=== PATIENT | male | born 1995 | race Caucasian/White ===

== ENCOUNTER 2016-08-07 08:58 | Emergency (ER) | payer OTHER ==
[2016-08-07 09:19] VITALS: BP 139/95; PULSE 95; RESP 18
[2016-08-07 09:20] VITALS: TEMP 99.9
[2016-08-07 09:50] LABS: Appearance,Urine Clear (Clear); Bilirubin,Urine Negative (Negative); Glucose,Urine (UA) Negative (Negative); Ketones,Urine Negative (Negative); Leukocyte Esterase,Urine Negative (Negative); Nitrite,Urine Negative (Negative); Protein,Urine Negative (Negative); UA Billing (MACRO vs. MICRO) CHEM; Urobilinogen,Urine <2.0 mg/dL (<2.0)
--- NOTE | 2016-08-07 09:50 | ED ---
Psych HPI - General Chief Complaint: Psychiatric Symptoms Stated Complaint: depression Time Seen by Provider: 08/07/16 09:30 Source: patient, RN notes reviewed Mode of arrival: ambulatory - History of Present Illness Initial Comments: Patient is a 20-year-old male presents emergency room for psychiatric evaluation. Patient's father states the patient has a history of depression. Patient's father states patient has history of bipolar disorder. Patient's mother states the patient on his manic phase. Patient states that he has been feeling depressed over the past few weeks. 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 Patient's father states that while talking on the phone with him, he noticed that patient was not acting himself. Patient states that he takes lithium, Zoloft and Seroquel as needed. Patient states his lithium was increased about a month ago. Patient states he was supposed to get his lithium level checked a few weeks ago and never did. Patient states he follows up with a psychiatrist at [employer] [facility] [employer]. Patient states he has been having on and off suicidal thoughts. Patient denies any current plans. Patient denies any current suicidal ideations. Patient denies homicidal ideations. Patient denies visual or auditory hallucinations. Patient denies smoking. Patient states he does smoke marijuana occasionally. Patient states he drinks alcohol the weekends. Patient denies any recent alcohol use. Patient denies other illicit drug use. Patient denies significant past medical history. Patient denies headache, dizziness, chest pain, shortness of breath, nausea, vomiting, abdominal pain, fevers or chills. Patient's father states the patient was placed at [facility] for about a month about 2 years ago and wanted him to be evaluated before he gets any worse and that happens again. - Related Data Home Medications Medication Instructions Recorded Confirmed [place] Carbonate [Lithobid] 900 mg PO HS 08/07/16 08/07/16 QUEtiapine [SEROquel] 100 mg PO HS 08/07/16 08/07/16 Sertraline [Zoloft] 200 mg PO HS 08/07/16 08/07/16 Allergies Allergy/AdvReac Type Severity Reaction Status Date / Time No Known Allergies Allergy Verified 08/07/16 09:39 Review of Systems ROS Statement: Those systems with pertinent positive or pertinent negative responses have been documented in the HPI. ROS Other: All systems not noted in ROS Statement are negative. Past Medical History Past Medical History: No Reported History History of Any Multi-Drug Resistant Organisms: None Reported Past Surgical History: Appendectomy, Orthopedic Surgery Additional Past Surgical History / Comment(s): bone spur removal from wrist Past Psychological History: Bipolar, Depression Smoking Status: Current some day smoker Past Alcohol Use History: Occasional Past Drug Use History: Marijuana General Exam - General Exam Comments Initial Comments: Sitting in exam room, no acute distress. Limitations: no limitations General appearance: alert, in no apparent distress Head exam: Present: atraumatic, normocephalic, normal inspection Eye exam: Present: normal appearance, PERRL, EOMI Pupils: Present: normal accommodation ENT exam: Present: normal exam Neck exam: Present: normal inspection Respiratory exam: Present: normal lung sounds bilaterally. Absent: respiratory distress Cardiovascular Exam: Present: regular rate, normal rhythm, normal heart sounds Extremities exam: Present: normal inspection Back exam: Present: normal inspection Neurological exam: Present: alert, oriented X3, CN II-XII intact, normal gait Psychiatric exam: Present: normal affect, normal mood Skin exam: Present: warm, dry, intact, normal color. Absent: rash Course Vital Signs 08/07/16 09:13 Temperature 99.9 F H Pulse Rate 95 Respiratory 18 Rate Blood Pressure 139/95 O2 Sat by Pulse 97 Oximetry Medical Decision Making - Medical Decision Making Patient is a 20-year-old female presents to the emergency room for psychiatric evaluation. Patient's lithium level 0.3. Patient states last dose of lithium was about 12 hours ago. Patient medically cleared at this time to be evaluated by psych. [facility] did evaluate patient and does not meet admission criteria. Patient advised to follow-up with outpatient. Patient and his father state they understand everything that was discussed with them. Return parameters discussed. - Lab Data Lab Results 08/07/16 08/07/16 08/07/16 Range/Units 09:36 09:36 10:52 Urine Color Yellow Urine Appearance Clear (Clear) Urine pH 7.0 (5.0-8.0) Ur Specific Pe Ell 1.010 (1.001-1.035) Urine Protein Negative (Negative) Urine Glucose (UA) Negative (Negative) Urine Ketones Negative (Negative) Urine Blood Negative (Negative) Urine Nitrate Negative (Negative) Urine Bilirubin Negative (Negative) Urine Urobilinogen <2.0 (<2.0) mg/dL Ur Leukocyte Esterase Negative (Negative) Urine Opiates Screen Not Detected (NotDetected) Ur Oxycodone Screen Not Detected (NotDetected) Urine Methadone Screen Not Detected (NotDetected) Ur Propoxyphene Screen Not Detected (NotDetected) Ur Barbiturates Screen Not Detected (NotDetected) U Tricyclic Antidepress Not Detected (NotDetected) Ur Phencyclidine Scrn Not Detected (NotDetected) Ur Amphetamines Screen Not Detected (NotDetected) U Methamphetamines Scrn Not Detected (NotDetected) U Benzodiazepines Scrn Not Detected (NotDetected) [place] 0.3 mmol/L Urine Cocaine Screen Not Detected (NotDetected) U Marijuana (THC) Screen Not Detected (NotDetected) Disposition Clinical Impression: Bipolar disorder Disposition: HOME SELF-CARE Condition: Good Instructions: Bipolar Disorder (ED) Additional Instructions: Continue taking medications as directed. Please follow up with psychiatrist. If any new symptom arises or symptoms worsen, return to ER as soon as possible. Referrals: Alexei Maynard MD [Primary Care Provider] - 1-2 days Time of Disposition: 12:29
[2016-08-07] MEDS ORDERED: NICOTINE 14MG/24HR PATCH TRANSDERM STA (10:43)
== END 2016-08-07 12:44 | disposition home or self-care (01) ==
LOC: EC 08:58
DX: F31.9 Bipolar disorder, unspecified (principal); Z79.899 Other long term (current) drug therapy; F17.200 Nicotine dependence, unspecified, uncomplicated
CPT/HCPCS: 82075; 36415; 80178; 81003; 80306; 99283; S4990

== ENCOUNTER → 2016-12-30 | Outpatient (CLI) | payer OTHER ==
[2016-12-30 13:32] LABS: Blood Urea Nitrogen 13 mg/dL (9-20); Cholesterol 186 mg/dL (<200); HDL Cholesterol 43 mg/dL (40-60); Lithium 0.4 mmol/L; Non-African American GFR(MDRD) >60 (>60 ml/min/1.73 sqM); Triglycerides 173 mg/dL (<150)
[2016-12-30 17:45] LABS: Glucose 92 mg/dL (74-99)
[2016-12-30 19:39] LABS: Hemoglobin A1C 4.8 % (4.2-6.1)
== END | disposition home or self-care (01) ==
LOC: LABWHC1 12:50
PROVIDERS: ATTEND Psychiatry & Neurology Psychiatry
DX: Z51.81 Encounter for therapeutic drug level monitoring (principal); Z79.899 Other long term (current) drug therapy
CPT/HCPCS: 36415; 80061; 80178; 82565; 82947; 83036; 84439; 84443; 84520

== ENCOUNTER → 2020-06-15 | Outpatient (CLI) | payer OTHER ==
[2020-06-15 10:41] LABS: Basophils # (A) 0.1 k/uL (0-0.2); Basophils % (A) 1 %; Eosinophils # (A) 0.6 k/uL (0-0.7); Eosinophils % (A) 7 %; HCT 49.8 % (39.0-53.0); HGB 17.2 gm/dL (13.0-17.5); Lymphocytes # (A) 2.9 k/uL (1.0-4.8); Lymphocytes % (A) 33 %; MCH 31.6 pg (25.0-35.0); MCHC 34.5 g/dL (31.0-37.0); MCV 91.7 fL (80.0-100.0); Mean Platelet Volume 7.8; Monocytes # (A) 0.7 k/uL (0-1.0); Monocytes % (A) 7 %; Neutrophils # (A) 4.5 k/uL (1.3-7.7); Neutrophils % (A) 50 %; Platelet Count 245 k/uL (150-450); RBC 5.43 m/uL (4.30-5.90); RDW 12.7 % (11.5-15.5); WBC 8.9 k/uL (3.8-10.6)
[2020-06-15 15:49] LABS: African American GFR (CKD) 122.4 (60.0-200.0); Albumin 4.8 g/dL (3.80-4.90); Albumin/Globulin Ratio 1.92 (1.60-3.17); Anion Gap 7.1 mmol/L (4.00-12.00); Calcium 10.1 mg/dL (8.7-10.3); Carbon Dioxide 26.9 mmol/L (21.6-31.8); Globulin 2.5 g/dL (1.6-3.3); Lithium 0.7 mmol/L (0.5-1.2); Non-African American GFR(CKD) 105.6 (60.0-200.0); Potassium 4.9 mmol/L (3.5-5.5); T4, Free (Free Thyroxine) 0.9 ng/dL (0.80-1.80); Total Bilirubin 0.6 mg/dL (0.2-1.2); Total Protein 7.3 g/dL (6.2-8.2)
== END | disposition home or self-care (01) ==
LOC: LABWHC1 09:40
PROVIDERS: ATTEND Family Medicine
DX: F31.9 Bipolar disorder, unspecified (principal); E03.9 Hypothyroidism, unspecified
CPT/HCPCS: 36415; 80053; 80178; 84439; 84443; 84481; 85025

== ENCOUNTER → 2020-12-02 | Outpatient (CLI) | payer OTHER ==
[2020-12-02 19:15] LABS: Albumin 4.9 g/dL (3.80-4.90); Albumin/Globulin Ratio 1.81 (1.60-3.17); Bilirubin, Conjugated 0.3 mg/dL (0.20-0.40); Bilirubin,Unconjugated 0.7 mg/dL; C Reactive Protein, High Sens 1.08 mg/L (0.000-3.000); Chol/HDL Ratio 4.47; Ferritin 301.9 ng/mL (22.0-322.0); Globulin 2.7 g/dL (1.6-3.3); LDL Cholesterol,Calculated 99.6 mg/dL (0.0-131.0); Lithium 0.2 mmol/L (0.5-1.2); Total Protein 7.6 g/dL (6.2-8.2); VLDL Calculation 25.4 mg/dL (5.00-40.00)
[2020-12-02 22:09] LABS: Hepatitis A Antibody IgM Non-Reactive (Non-Reactive); Hepatitis B Core IgM Non-Reactive (Non-Reactive); Hepatitis B Surface Antigen Non-Reactive (Non-Reactive); Hepatitis C IgG Antibody Non-Reactive (Non-Reactive)
== END | disposition home or self-care (01) ==
LOC: LABWHC1 10:39
PROVIDERS: ATTEND Family Medicine
DX: Z13.220 Encounter for screening for lipoid disorders (principal); F31.9 Bipolar disorder, unspecified; R74.01 Elevation of levels of liver transaminase levels
CPT/HCPCS: 36415; 80061; 80074; 80076; 80178; 82728; 82977; 86141

== ENCOUNTER 2023-01-05 10:05 | Emergency (ER) | payer OTHER ==
[2023-01-05 10:19] VITALS: RESP 16; TEMP 98.1
--- NOTE | 2023-01-05 10:49 | ED ---
General Adult HPI - General Chief complaint: GI Bleed Stated complaint: blood in Stool Time Seen by Provider: 01/05/23 10:34 Source: patient, RN notes reviewed Mode of arrival: ambulatory Limitations: no limitations - History of Present Illness Initial comments: Patient is a 27 year old male presenting to the ER with a chief complaint of bright red blood when wiping after bowel movements. Pateints states it started this morning and is extremely painful. He is unable to sit down due to the pain. Denies any urinary symptoms, trauma, or abdominal pain. No other complaints. Patient has meant that he was straining with bowel movement this morning when it started. - Related Data Home Medications Medication Instructions Recorded Confirmed [place] Carbonate [Lithobid] 900 mg PO HS 08/07/16 08/07/16 QUEtiapine [SEROquel] 100 mg PO HS 08/07/16 08/07/16 Sertraline [Zoloft] 200 mg PO HS 08/07/16 08/07/16 Previous Rx's Medication Instructions Recorded Docusate [Colace] 100 mg PO DAILY #10 capsule 01/05/23 Hydrocortisone/Pramoxine 1 applic RECTAL BID #10 gm 01/05/23 [Proctofoam-Hc 1%-1% Foam] Triamcinolone 0.1% Cream [Kenalog 1 applicatio TOPICAL BID #30 gram 01/05/23 0.1% Cream] Allergies Allergy/AdvReac Type Severity Reaction Status Date / Time No Known Allergies Allergy Verified 01/05/23 10:16 Review of Systems ROS Statement: Those systems with pertinent positive or pertinent negative responses have been documented in the HPI. ROS Other: All systems not noted in ROS Statement are negative. Past Medical History Past Medical History: No Reported History History of Any Multi-Drug Resistant Organisms: None Reported Past Surgical History: Appendectomy, Orthopedic Surgery Additional Past Surgical History / Comment(s): bone spur removal from wrist Past Psychological History: Bipolar, Depression Smoking Status: Vaper Past Alcohol Use History: Occasional Past Drug Use History: Marijuana General Exam Limitations: no limitations General appearance: alert, in no apparent distress, anxious Head exam: Present: atraumatic, normocephalic, normal inspection Respiratory exam: Present: normal lung sounds bilaterally. Absent: respiratory distress, wheezes, rales, rhonchi, stridor Cardiovascular Exam: Present: regular rate, normal rhythm, normal heart sounds. Absent: systolic murmur, diastolic murmur, rubs, gallop, clicks GI/Abdominal exam: Present: soft, normal bowel sounds. Absent: distended, tenderness, guarding, rebound, rigid Rectal exam: Present: normal inspection, normal rectal tone Course Vital Signs 01/05/23 01/05/23 10:16 11:16 Temperature 98.1 F Pulse Rate 62 68 Respiratory 16 16 Rate Blood Pressure 162/86 145/68 O2 Sat by Pulse 98 98 Oximetry Medical Decision Making - Medical Decision Making Was pt. sent in by a medical professional or institution (, DONNA, HEARING AIDE TECHNICIAN, urgent care, hospital, or long term...) When possible be specific @ -No Did you speak to anyone other than the patient for history (EMS, parent, family, police, friend...)? What history was obtained from this source @ -No Did you review nursing and triage notes (agree or disagree)? Why? @ -I reviewed and agree with nursing and triage notes Were old charts reviewed (outside hosp., previous admission, EMS record, old EKG, old radiological studies, urgent care reports/EKG's, long term records)? Report findings @ -No old charts were reviewed Differential Diagnosis (chest pain, altered mental status, abdominal pain women, abdominal pain men, vaginal bleeding, weakness, fever, dyspnea, syncope, headache, dizziness, GI bleed, back pain, seizure, CVA, palpatations, mental health, musculoskeletal)? @ -Hemorrhoid, internal, fissure, gastric intestinal bleeding, EKG interpreted by me (3pts min.). @ -None X-rays interpreted by me (1pt min.). @ -None done CT interpreted by me (1pt min.). @ -None done U/S interpreted by me (1pt. min.). @ -None done What testing was considered but not performed or refused? (CT, X-rays, U/S, labs)? Why? @ -None What meds were considered but not given or refused? Why? @ -None Did you discuss the management of the patient with other professionals (professionals i.e. DONNA Lock, HEARING AIDE TECHNICIAN, lab, RT, psych nurse, mental health social worker, soft top installer, teacher, special forces warrant officer, case loader operator)? Give summary @ -No Was smoking cessation discussed for >3mins.? @ -No Was critical care preformed (if so, how long)? @ -No Were there social determinants of health that impacted care today? How? (Homelessness, low income, unemployed, alcoholism, drug addiction, transportation, low edu. Level, literacy, decrease access to med. care, halfway, rehab)? @ -No Was there de-escalation of care discussed even if they declined (Discuss DNR or withdrawal of care, Hospice)? DNR status @ -No What co-morbidities impacted this encounter? (DM, HTN, Smoking, COPD, CAD, Cancer, CVA, ARF, Chemo, Hep., AIDS, mental health diagnosis, sleep apnea, morbid obesity)? @ -None Was patient admitted / discharged? Hospital course, mention meds given and route, prescriptions, significant lab abnormalities, going to OR and other pertinent info. @ -Discharged patient's symptoms consistent with internal hemorrhoid. Patient was given Proctofoam patient advised to use Tucks pads, stool softener. Patient also complained of rash or skin consistent with dermatitis. Patient was given topical steroid cream temperature discussed. Undiagnosed new problem with uncertain prognosis? @ -No Drug Therapy requiring intensive monitoring for toxicity (Heparin, Nitro, Insulin, Cardizem)? @ -No Were any procedures done? @ -No Diagnosis/symptom? @ -Dermatitis, internal hemorrhoid Acute, or Chronic, or Acute on Chronic? @ -Acute Uncomplicated (without systemic symptoms) or Complicated (systemic symptoms)? @ -Uncomplicated Side effects of treatment? @ -No Exacerbation, Progression, or Severe Exacerbation? @ -No Poses a threat to life or bodily function? How? (Chest pain, [place], [place], pneumonia, PE, COPD, DKA, ARF, appy, cholecystitis, CVA, Diverticulitis, Homicidal, Suicidal, threat to staff... and all critical care pts) @ -No Disposition Clinical Impression: Internal hemorrhoid, Dermatitis Disposition: HOME SELF-CARE Condition: Stable Instructions (If sedation given, give patient instructions): Hemorrhoids (ED) Additional Instructions: Use [id number] Tucks. Please return to the Emergency Department if symptoms worsen or any other concerns. Prescriptions: Docusate [Colace] 100 mg PO DAILY #10 capsule Triamcinolone 0.1% Cream [Kenalog 0.1% Cream] 1 applicatio TOPICAL BID #30 gram Hydrocortisone/Pramoxine [Proctofoam-Hc 1%-1% Foam] 1 applic RECTAL BID #10 gm Is patient prescribed a controlled substance at d/c from ED?: No Referrals: None,Stated [Primary Care Provider] - 1-2 days Time of Disposition: 10:54
[2023-01-05 11:17] VITALS: BP 145/68; PULSE 68
== END 2023-01-05 11:17 | disposition home or self-care (01) ==
LOC: EC 10:05
DX: K64.8 Other hemorrhoids (principal); L30.9 Dermatitis, unspecified; F31.9 Bipolar disorder, unspecified; F17.290 Nicotine dependence, other tobacco product, uncomplicated; F12.90 Cannabis use, unspecified, uncomplicated; Z79.899 Other long term (current) drug therapy; Z90.49 Acquired absence of other specified parts of digestive tract
CPT/HCPCS: 99284

== ENCOUNTER 2024-08-08 19:28 | Inpatient (IN) | payer BC, OTHER ==
--- NOTE | 2024-08-08 20:34 | ED ---
General Adult HPI - General Chief complaint: Psychiatric Symptoms Stated complaint: Mental health Time Seen by Provider: 08/08/24 20:20 Source: patient, RN notes reviewed, old records reviewed Mode of arrival: ambulatory Limitations: no limitations - History of Present Illness Initial comments: Patient is a 28-year-old male who presents emergency department for psychiatric evaluation. He has a history of bipolar disease, and has been compliant with medications but has been feeling more depressed lately with suicidal ideations. No plan. No prior attempt. No homicidal ideations, times complaints. No visual or auditory hallucinations. No drug use other than marijuana. Presents with his father for psychiatric evaluation. Recently restarted seeing [facility]. States he last saw them on Sunday however symptoms have been worsening due to worsening life stressors. Presents for psychiatric evaluation at this time. - Related Data Home Medications Medication Instructions Recorded Confirmed [place] Carbonate [Lithobid] 900 mg PO HS 08/07/16 08/07/16 QUEtiapine [SEROquel] 100 mg PO HS 08/07/16 08/07/16 Sertraline [Zoloft] 200 mg PO HS 08/07/16 08/07/16 Previous Rx's Medication Instructions Recorded Docusate [Colace] 100 mg PO DAILY #10 capsule 01/05/23 Hydrocortisone/Pramoxine 1 applic RECTAL BID #10 gm 01/05/23 [Proctofoam-Hc 1%-1% Foam] Triamcinolone 0.1% Cream [Kenalog 1 applicatio TOPICAL BID #30 gram 01/05/23 0.1% Cream] Allergies Allergy/AdvReac Type Severity Reaction Status Date / Time No Known Allergies Allergy Verified 08/08/24 19:44 Review of Systems ROS Statement: Those systems with pertinent positive or pertinent negative responses have been documented in the HPI. Review of Systems: CONST: Denies fever EYES: Denies blurry vision ENT: Denies nasal congestion C/V: Denies Chest pain RESP: Denies shortness of breath GI: Denies abdominal pain : Denies dysuria SKIN: Denies rash. MSK: Denies joint pain. NEURO: Denies headache ROS Other: All systems not noted in ROS Statement are negative. Past Medical History Past Medical History: No Reported History History of Any Multi-Drug Resistant Organisms: None Reported Past Surgical History: Appendectomy, Orthopedic Surgery Additional Past Surgical History / Comment(s): bone spur removal from wrist Past Psychological History: Bipolar, Depression Smoking Status: Vaper Past Alcohol Use History: Occasional Past Drug Use History: Marijuana General Exam - General Exam Comments Initial Comments: General: Appears in no acute distress. HEAD: Normal with no signs of head trauma. EYES: EOMI. ENT: Hearing grossly intact. RESPIRATORY: No respiratory distress. C/V: Regular rate and rhythm. ABD: Abdomen is nondistended. EXT: No obvious deformity. SKIN: No rashes or lesions observed on exposed skin. NEURO: Alert and oriented. Limitations: no limitations Course Vital Signs 08/08/24 19:39 Temperature 98.5 F Pulse Rate 68 Respiratory 20 Rate Blood Pressure 127/78 O2 Sat by Pulse 98 Oximetry Medical Decision Making - Medical Decision Making Was pt. sent in by a medical professional or institution (DONNA Lock, MEDICAL COLLECTIONS, urgent care, hospital, or correction...) When possible be specific @ -No Did you speak to anyone other than the patient for history (EMS, parent, family, police, friend...)? What history was obtained from this source @ -Patient's father is at bedside and assist with patient's past medical history including history of depression as well as multiple psychiatric eval uations in the past. Did you review nursing and triage notes (agree or disagree)? Why? @ -I reviewed and agree with nursing and triage notes Were old charts reviewed (outside hosp., previous admission, EMS record, old EKG, old radiological studies, urgent care reports/EKG's, correction records)? Report findings @ -No old charts were reviewed Differential Diagnosis (chest pain, altered mental status, abdominal pain women, abdominal pain men, vaginal bleeding, weakness, fever, dyspnea, syncope, headache, dizziness, GI bleed, back pain, seizure, CVA, palpatations, mental health, musculoskeletal)? @ -Differential Mental Health Depression, anxiety, bipolar, psychosis, schizophrenia, borderline personality, situational depression, adjustment disorder, behavioral disorder, brain tumor, m alingering, substance abuse, encephalopathy, medication reaction, dementia, hypothyroidism, degenerative neurologic disorder, lupus.... This is not meant to be all-inclusive list EKG interpreted by me (3pts min.). @ -None done X-rays interpreted by me (1pt min.). @ -None done CT interpreted by me (1pt min.). @ -None done U/S interpreted by me (1pt. min.). @ -None done What testing was considered but not performed or refused? (CT, X-rays, U/S, labs)? Why? @ -None What meds were considered but not given or refused? Why? @ -None Did you discuss the management of the patient with other professionals (professionals i.e. , PA, MEDICAL COLLECTIONS, lab, RT, psych nurse, nephrology social worker, grocery clerk marking, teacher, navigating officer, case managers)? Give summary @ -No Was smoking cessation discussed for >3mins.? @ -No Was critical care preformed (if so, how long)? @ -No Were there social determinants of health that impacted care today? How? (Homelessness, low income, unemployed, alcoholism, drug addiction, transpor tation, low edu. Level, literacy, decrease access to med. care, [place] [facility], rehab)? @ -No Was there de-escalation of care discussed even if they declined (Discuss DNR or withdrawal of care, Hospice)? DNR status @ -No What co-morbidities impacted this encounter? (DM, HTN, Smoking, COPD, CAD, Cancer, CVA, ARF, Chemo, Hep., AIDS, mental health diagnosis, sleep apnea, morbid obesity)? @ -None Was patient admitted / discharged? Hospital course, mention meds given and route, prescriptions, significant lab abnormalities, going to OR and other pertinent info. @ -Patient presents for mental health evaluation. Suicidal ideations with depression. Vital signs within acceptable limits. Suicide precautions placed. Sitter ordered. BAT is 0. UDS is pending. Vital signs within acceptable limits. At this time, patient is medically cleared for evaluation by psychiatry. Disposition pending psychiatric evaluation. EPS notified of the consult. EPS evaluated patient determined that he does meet inpatient criteria. Patient will be admitted to inpatient psychiatry in stable condition. Undiagnosed new problem with uncertain prognosis? @ -No Drug Therapy requiring intensive monitoring for toxicity (Heparin, Nitro, Insulin, Cardizem)? @ -No Were any procedures done? @ -No Diagnosis/symptom? @ -Suicidal ideation, depression Acute, or Chronic, or Acute on Chronic? @ -Acute Uncomplicated (without systemic symptoms) or Complicated (systemic symptoms)? @ -Complicated Side effects of treatment? @ -None Exacerbation, Progression, or Severe Exacerbation] @ -No Poses a threat to life or bodily function? @ -Yes - Lab Data Lab Results 08/08/24 08/08/24 Range/Units 21:21 21:21 Urine Opiates Screen Not Detected (NotDetected) Ur Oxycodone Screen Not Detected (NotDetected) Urine Methadone Screen Not Detected (NotDetected) Ur Barbiturates Screen Not Detected (NotDetected) U Tricyclic Antidepress Not Detected (NotDetected) Ur Phencyclidine Scrn Not Detected (NotDetected) Ur Amphetamines Screen Not Detected (NotDetected) U Methamphetamines Scrn Not Detected (NotDetected) U Benzodiazepines Scrn Not Detected (NotDetected) Urine Cocaine Screen Not Detected (NotDetected) U Marijuana (THC) Screen Detected H (NotDetected) Influenza Type A (PCR) Not Detected (Not Detectd) Influenza Type B (PCR) Not Detected (Not Detectd) RSV (PCR) Not Detected (Not Detectd) SARS-CoV-2 (PCR) Not Detected (Not Detectd) Disposition Clinical Impression: Depression, Suicidal ideation Disposition: TRANSFER TO PSYCH HOSP/UNIT Condition: Stable Time of Disposition: 23:00
[2024-08-08 21:42] LABS: Amphetamine Screen,Urine Not Detected (NotDetected); Barbiturate Screen,Urine Not Detected (NotDetected); Benzodiazepines Screen,Urine Not Detected (NotDetected); Cocaine Screen,Urine Not Detected (NotDetected); Methadone Screen, Urine Not Detected (NotDetected); Opiate Screen,Urine Not Detected (NotDetected); Oxycodone Screen, Urine Not Detected (NotDetected); Phencyclidine Screen,Urine Not Detected (NotDetected); Tricyclic Antidepressant,Urine Not Detected (NotDetected); Urn Cannabinoid Scrn Detected (NotDetected)
[2024-08-08 22:12] LABS: Influenza A Not Detected (Not Detectd); Influenza B Not Detected (Not Detectd); RSV Not Detected (Not Detectd)
[2024-08-08] MEDS ORDERED: IBUPROFEN 600 MG TAB PO PRN (22:57)
[2024-08-08] MEDS ORDERED: MAGNESIUM HYDROXIDE 2,400 MG/30 ML CUP PO PRN (22:57)
[2024-08-08] MEDS ORDERED: ACETAMINOPHEN TAB 325 MG TAB PO PRN (22:57)
[2024-08-08] MEDS ORDERED: MAG HYDROX/AL HYDROX/SIMETH 355 ML BOTTLE PO PRN (22:57)
[2024-08-08] MEDS ORDERED: LORazepam 2 MG/ML INJ IM PRN (22:59)
[2024-08-08] MEDS ORDERED: LORazepam 1 MG TAB PO PRN (22:59)
[2024-08-08] MEDS ORDERED: HALOPERIDOL LACTATE 5 MG/ML 1 ML VIAL IM PRN (22:59)
[2024-08-08] MEDS ORDERED: haloperidoL 5 MG TAB PO PRN (22:59)
[2024-08-09] MEDS: SERTRALINE 50 MG TAB PO SCH (01:32)
[2024-08-09] MEDS: QUEtiapine 50 MG TAB PO SCH (01:32)
--- NOTE | 2024-08-09 01:35 | P.MDCNMH ---
<Ace Randhawa - Last Filed: 08/09/24 01:35> History of Present Illness H&P Date: 08/09/24 Patient is a 28-year-old male with a history of bipolar disorder came to the ER for psychiatric evaluation since he has been feeling depressed lately with suicidal ideations. Internal medicine has been consulted for the medical evaluation for this patient. Patient is denies any history of medical history other than psychiatric issues. Patient denies chest pain, shortness of breath, fever, chills, nausea, vomiting, abdominal pain, diarrhea, constipation, numbness, weakness or tingling in upper or lower extremities. UDS in the ED was positive for marijuana (THC) Vital stable with Tmax of 98.5 F. Pulse rate of 68, respiratory 20, blood pressure 127/78, oxygen saturation 98% room air Review of systems: Pertinent positives and negatives as discussed in HPI, a complete review of systems was performed and all other systems are negative. Social history: Tobacco: Vaping x 6 years Alcohol: Occasionally Recreational drugs: Smokes marijuana Family History: Mother has type 2 diabetes Physical examination: Vital signs reviewed General: non toxic, no distress, appears at stated age, normal weight Derm: no unusual rashes/lesions, warm Head: atraumatic, normocephalic, symmetric Eyes: EOMI, no lid lag, anicteric sclera, pupils equal round reactive to light ENT: Nose and ears atraumatic Neck: No cervical lymphadenopathy, trachea midline, supple Mouth: no lip lesion, mucus membranes moist Cardiovascular: S1S2 reg, no murmur, positive dorsalis pedis pulse bilateral, no edema Lungs: CTA bilateral, no rhonchi, no rales, no accessory muscle use Abdominal: soft, nontender to palpation, no guarding Ext: muscle strength 5 out of 5 in all 4 extremities grossly, no gross muscle atrophy, no contractures, Neuro: CN II-XI grossly intact, no gross focal neuro deficits Psych: Alert, oriented, appropriate affect Assessment/Plan: This is a 28-year-old male otherwise generally healthy has been admitted to the mental health unit for psychiatric evaluation because of the active suicidal ideation. Internal medicine team has been consulted for the medical evaluation of this patient. #Psychiatric evaluation Continue management as per psychiatry team Dictation was produced using [employer] dictation software. Please excuse any grammatical, word or spelling errors. Past Medical History Past Medical History: No Reported History History of Any Multi-Drug Resistant Organisms: None Reported Past Surgical History: Appendectomy, Orthopedic Surgery Additional Past Surgical History / Comment(s): bone spur removal from wrist Past Psychological History: Bipolar, Depression Smoking Status: Vaper Past Alcohol Use History: Occasional Past Drug Use History: Marijuana Medications and Allergies Home Medications Medication Instructions Recorded Confirmed Type [place] Carbonate [Lithobid] 900 mg PO HS 08/07/16 08/07/16 History QUEtiapine [SEROquel] 100 mg PO HS 08/07/16 08/07/16 History Sertraline [Zoloft] 200 mg PO HS 08/07/16 08/07/16 History Docusate [Colace] 100 mg PO DAILY #10 capsule 01/05/23 Rx Hydrocortisone/Pramoxine 1 applic RECTAL BID #10 gm 01/05/23 Rx [Proctofoam-Hc 1%-1% Foam] Triamcinolone 0.1% Cream [Kenalog 1 applicatio TOPICAL BID #30 gram 01/05/23 Rx 0.1% Cream] Allergies Allergy/AdvReac Type Severity Reaction Status Date / Time No Known Allergies Allergy Verified 08/08/24 19:44 Physical Exam Vitals: Vital Signs Temp Pulse Resp BP Pulse Ox 08/08/24 19:39 98.5 F 68 20 127/78 98 Intake and Output 08/08/24 08/08/24 08/09/24 14:59 22:59 06:59 Other: Weight 92.986 kg Results Labs: Abnormal Lab Results - Last 24 Hours (Table) 08/08/24 Range/Units 21:21 U Marijuana (THC) Screen Detected H (NotDetected) <Kristy Noyola - Last Filed: 08/09/24 02:52> History of Present Illness I have seen and evaluated the patient today. I Discussed the case with the resident and agree with the resident's findings I edited the assessment and plan as necessary as documented in the resident's note. Physical Exam Vitals: Vital Signs Temp Pulse Pulse Resp BP BP Pulse Ox 08/09/24 02:03 97.5 F L 88 16 129/84 97 08/08/24 19:39 98.5 F 68 20 127/78 98 Intake and Output 08/08/24 08/08/24 08/09/24 14:59 22:59 06:59 Other: Weight 92.986 kg 92.261 kg Cranial Nerve Examination - Cranial Nerves Cranial Nerve II- Optic: Intact Cranial Nerve III- Oculomotor: Intact Cranial Nerve IV- Trochlear: Intact Cranial Nerve V- Trigeminal: Intact Cranial Nerve - Abducens: Intact Cranial Nerve VII- Facial: Intact Cranial Nerve VIII- Auditory: Intact Cranial Nerve IX- Glossopharyngeal: Intact Cranial Nerve X- Vagus: Intact Cranial Nerve XI- Accessory: Intact Cranial Nerve XII- Hypoglossal: Intact Results Labs: Abnormal Lab Results - Last 24 Hours (Table) 08/08/24 Range/Units 21:21 U Marijuana (THC) Screen Detected H (NotDetected)
[2024-08-09 02:19] VITALS: RESP 16
[2024-08-09 05:47] LABS: Appearance,Urine Turbid (Clear); Bilirubin,Urine Negative (Negative); Blood,Urine Negative (Negative); Calcium Oxalate Crystals,Urine Occasional /hpf; Color,Urine Yellow; Glucose,Urine (UA) Negative (Negative); Ketones,Urine 1+ (Negative); Leukocyte Esterase,Urine Trace (Negative); Mucus,Urine Many /hpf; Nitrite,Urine Negative (Negative); PH, Urine 5.5 (5.0-8.0); Protein,Urine Trace (Negative); RBC,Urine 6 /hpf (0-5); Squamous Epithelial Cell,Urine 3 /hpf (0-4); Urobilinogen,Urine <2.0 mg/dL (<2.0); WBC,Urine 2 /hpf (0-5)
[2024-08-09] MEDS: NICOTINE 14MG/24HR PATCH TRANSDERM SCH (09:49)
[2024-08-09 10:04] LABS: Basophils % (A) 1 %; Eosinophils # (A) 0.1 k/uL (0-0.7); Eosinophils % (A) 3 %; HGB 15.5 gm/dL (13.0-17.5); Lymphocytes # (A) 1.8 k/uL (1.0-4.8); Lymphocytes % (A) 37 %; MCH 30.7 pg (25.0-35.0); MCHC 33.6 g/dL (31.0-37.0); MCV 91.5 fL (80.0-100.0); Mean Platelet Volume 8.5; Monocytes # (A) 0.2 k/uL (0-1.0); Monocytes % (A) 5 %; Neutrophils # (A) 2.5 k/uL (1.3-7.7); Neutrophils % (A) 53 %; Platelet Count 224 k/uL (150-450); RBC 5.03 m/uL (4.30-5.90); RDW 12.6 % (11.5-15.5); WBC 4.8 k/uL (3.8-10.6)
[2024-08-09 10:19] LABS: ALT 34 U/L (4-49); AST 26 U/L (17-59); African American GFR (CKD) >90 (>60 ml/min/1.73 sqM); Albumin 4.8 g/dL (3.5-5.0); Alkaline Phosphatase 35 U/L (38-126); Anion Gap 12 mmol/L; Bilirubin, Delta 0.2 mg/dL (0.0-0.2); Bilirubin,Unconjugated 1.3 mg/dL (0.0-1.1); Blood Urea Nitrogen 17 mg/dL (9-20); Calcium 9.4 mg/dL (8.4-10.2); Carbon Dioxide 26 mmol/L (22-30); Chloride 101 mmol/L (98-107); Glucose 121 mg/dL (74-99); Non-African American GFR(CKD) >90 (>60 ml/min/1.73 sqM); Potassium 4.1 mmol/L (3.5-5.1); Sodium 139 mmol/L (137-145); Total Bilirubin 1.5 mg/dL (0.2-1.3); Total Protein 7.7 g/dL (6.3-8.2)
--- NOTE | 2024-08-09 12:34 | P.HP ---
Psychiatric H&P - . H&P Date: 08/09/24 History & Physical: Allergies Allergy/AdvReac Type Severity Reaction Status Date / Time No Known Allergies Allergy Verified 08/08/24 19:44 Vital Signs Temp 97.5 F L 08/09/24 02:03 Pulse 88 08/09/24 02:03 Resp 16 08/09/24 02:03 BP 129/84 08/09/24 02:03 Pulse Ox 97 08/09/24 02:03 FiO2 Intake & Output 08/08/24 08/09/24 08/09/24 18:59 06:59 18:59 Weight 92.261 kg Laboratory Last Values WBC 4.8 k/uL (3.8-10.6) 08/09/24 09:08 RBC 5.03 m/uL (4.30-5.90) 08/09/24 09:08 Hgb 15.5 gm/dL (13.0-17.5) 08/09/24 09:08 Hct 46.0 % (39.0-53.0) 08/09/24 09:08 MCV 91.5 fL (80.0-100.0) 08/09/24 09:08 MCH 30.7 pg (25.0-35.0) 08/09/24 09:08 MCHC 33.6 g/dL (31.0-37.0) 08/09/24 09:08 RDW 12.6 % (11.5-15.5) 08/09/24 09:08 Plt Count 224 k/uL (150-450) 08/09/24 09:08 MPV 8.5 08/09/24 09:08 Neutrophils % 53 % 08/09/24 09:08 Lymphocytes % 37 % 08/09/24 09:08 Monocytes % 5 % 08/09/24 09:08 Eosinophils % 3 % 08/09/24 09:08 Basophils % 1 % 08/09/24 09:08 Neutrophils # 2.5 k/uL (1.3-7.7) 08/09/24 09:08 Lymphocytes # 1.8 k/uL (1.0-4.8) 08/09/24 09:08 Monocytes # 0.2 k/uL (0-1.0) 08/09/24 09:08 Eosinophils # 0.1 k/uL (0-0.7) 08/09/24 09:08 Basophils # 0.0 k/uL (0-0.2) 08/09/24 09:08 Sodium 139 mmol/L (137-145) 08/09/24 09:08 Potassium 4.1 mmol/L (3.5-5.1) 08/09/24 09:08 Chloride 101 mmol/L (98-107) 08/09/24 09:08 Carbon Dioxide 26 mmol/L (22-30) 08/09/24 09:08 Anion Gap 12 mmol/L 08/09/24 09:08 BUN 17 mg/dL (9-20) 08/09/24 09:08 Creatinine 0.88 mg/dL (0.66-1.25) 08/09/24 09:08 Est GFR (CKD-EPI)AfAm >90 (>60 ml/min/1.73 sqM) 08/09/24 09:08 Est GFR (CKD-EPI)NonAf >90 (>60 ml/min/1.73 sqM) 08/09/24 09:08 Glucose 121 mg/dL (74-99) H 08/09/24 09:08 Calcium 9.4 mg/dL (8.4-10.2) 08/09/24 09:08 Total Bilirubin 1.5 mg/dL (0.2-1.3) H 08/09/24 09:08 Conjugated Bilirubin 0.0 mg/dL (0.0-0.3) 08/09/24 09:08 Unconjugated Bilirubin 1.3 mg/dL (0.0-1.1) H 08/09/24 09:08 Delta Bilirubin 0.2 mg/dL (0.0-0.2) 08/09/24 09:08 AST 26 U/L (17-59) 08/09/24 09:08 ALT 34 U/L (4-49) 08/09/24 09:08 Alkaline Phosphatase 35 U/L (38-126) L 08/09/24 09:08 Total Protein 7.7 g/dL (6.3-8.2) 08/09/24 09:08 Albumin 4.8 g/dL (3.5-5.0) 08/09/24 09:08 TSH 1.890 mIU/L (0.465-4.680) 08/09/24 09:08 Urine Color Yellow 08/08/24 21:21 Urine Appearance Turbid (Clear) 08/08/24 21:21 Urine pH 5.5 (5.0-8.0) 08/08/24 21:21 Ur Specific [place] 1.030 (1.001-1.035) 08/08/24 21:21 Urine Protein Trace (Negative) H 08/08/24 21:21 Urine Glucose (UA) Negative (Negative) 08/08/24 21:21 Urine Ketones 1+ (Negative) H 08/08/24 21:21 Urine Blood Negative (Negative) 08/08/24 21:21 Urine Nitrite Negative (Negative) 08/08/24 21:21 Urine Bilirubin Negative (Negative) 08/08/24 21:21 Urine Urobilinogen <2.0 mg/dL (<2.0) 08/08/24 21:21 Ur Leukocyte Esterase Trace (Negative) H 08/08/24 21:21 Urine RBC 6 /hpf (0-5) H 08/08/24 21:21 Urine WBC 2 /hpf (0-5) 08/08/24 21:21 Ur Squamous Epith Cells 3 /hpf (0-4) 08/08/24 21:21 Calcium Oxalate Crystal Occasional /hpf (None) H 08/08/24 21:21 Urine Mucus Many /hpf (None) H 08/08/24 21:21 Urine Opiates Screen Not Detected (NotDetected) 08/08/24 21:21 Ur Oxycodone Screen Not Detected (NotDetected) 08/08/24 21:21 Urine Methadone Screen Not Detected (NotDetected) 08/08/24 21:21 Ur Barbiturates Screen Not Detected (NotDetected) 08/08/24 21:21 U Tricyclic Antidepress Not Detected (NotDetected) 08/08/24 21:21 Ur Phencyclidine Scrn Not Detected (NotDetected) 08/08/24 21:21 Ur Amphetamines Screen Not Detected (NotDetected) 08/08/24 21:21 U Methamphetamines Scrn Not Detected (NotDetected) 08/08/24 21:21 U Benzodiazepines Scrn Not Detected (NotDetected) 08/08/24 21:21 Urine Cocaine Screen Not Detected (NotDetected) 08/08/24 21:21 U Marijuana (THC) Screen Detected (NotDetected) H 08/08/24 21:21 Influenza Type A (PCR) Not Detected (Not Detectd) 08/08/24 21:21 Influenza Type B (PCR) Not Detected (Not Detectd) 08/08/24 21:21 RSV (PCR) Not Detected (Not Detectd) 08/08/24 21:21 SARS-CoV-2 (PCR) Not Detected (Not Detectd) 08/08/24 21:21 08/09/24 12:12 IDENTIFYING DATA: Patient is a 28-year-old male, he is single, he has no kids, 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 Patient assessed in ER13 from [id number] without father present per patient request. Patient expresses he has been increasingly depressed with "severe thoughts of suicide". Patient denies current suicidal ideation but states he has daily thoughts of suicide. Patient states that his suicidal thoughts frequently and they take over his whole mood. Patient verbalizes previous suicide attempt to hang himself about 6 years ago. Patient states his mother commit suicide when he was 14 years old. Patient verbalizes that he stopped taking medication about 6 months ago for 4 months including [place] 900mg daily, Zoloft 100MG HS, and Seroquel 50mg HS. Patient states he restarted his Zoloft and Seroquel approx 2 months ago, but did not restart his [place] stating it caused extreme nausea and diarrhea. Patient verbalizes alcohol use socially last drink "a couple weeks ago". Verbalizes a "small amount" of marijana use daily, but denies any other substance use. Patient states he vapes daily. Patient denies homicidal ideation. Patient denies hallucinations or paranoia, and no delusional statements noted on assessment. Patient verbalizes decreased appetite and states that his appetite fluctuates based on his mood but is generally decreased over the past 2 weeks. Patient verbalizes good sleep since he continued his seroquel. Patient verbalizes without taking seroquel at night he has racing thoughts and increased suicidal thoughts at night. Patient denies difficulty maintaining hygiene and appears to have appropriate hygiene and is well groomed." Patient was seen today for psychiatric admission. He was fairly calm directable, pleasant during interaction. States that he has been dealing with depression and suicidal thoughts for the past few months. States that it has been increasing and claims that he talked to his father about it yesterday who brought him into the hospital. States that he had a major career change recently and started working as a mechanic helper with his father. Claims that he has been having financial stressors because the pay is not the same as what it was. He states that he has a history of bipolar disorder type I, stopped taking his medications for a bit. Does not have an outpatient psychiatrist. High levels of anxiety at this time. Claims that he is not having any paranoia or delusions. Has a history of manic episodes however not currently any manic symptoms. States that his sleep has been fair appetite has been poor. Patient denies any current suicidal or homicidal ideations intent or plan. At this time patient denies any auditory or visual hallucinations. Patient denies any flight of ideas racing thoughts and increased in goal directed behavior. Patient admits to using marijuana daily, claims that he also vapes nicotine. Denies any other recreational drug use PAST PSYCHIATRIC HISTORY: Patient has a history of bipolar disorder type I. He is currently on Zoloft, Seroquel and Lithobid. Aims that he has been psychiatrically hospitalized 4 times in the past, last admission was in 2016. Patient denies any psychiatric outpatient follow-up. Claims that he had a suicide attempt about 6 years ago when he tried to hang himself. PMH: as per ER note ALLERGIES: as per EMR CHEMICAL DEPENDENCY HISTORY: as per HPI FAMILY PSYCHIATRIC/SUBSTANCE USE HISTORY: Claims that his mother had schizophrenia and committed suicide. Claims that his aunt also had some form of mental illness SOCIAL HISTORY: Patient was born and raised in [facility]. Claims that he also was raised in [place]. Claims that he completed high school. He is single he has no kids, he lives with his stepbrother in a house. He works as a mechanic helper, denies any legal history. MENTAL STATUS EXAM: General Appearance: Patient appears to be tall, wearing hospital gown stated age is alert, directable, and attempts to cooperate. Patient appears to have fair hygiene and grooming. Behavior: Patient is seated without any agitated behavior. Attempts to cooperate Speech: Patient's speech is fluent and nonpressured. Mood/Affect: Patient reports their mood is depressed and anxious, affect is congruent and constricted. Suicidality/Homicidality: Patient denies having any homicidal ideation intent or plan. Denies any suicidal ideations intent or plan Perceptions: Patient denies any visual hallucinations and denies any auditory hallucinations Though content/process: There is no evidence of any delusional thought content and thought process is linear and goal-directed. Memory and concentration: AOX3, grossly intact for the purposes of this session. Can spell "WORLD" backwards Judgment and insight: fair STRENGTHS/WEAKNESSES: strength is that patient is resilient. Weakness is that patient has chronic mental illness and a mother who committed suicide. INTELLECT: Average IMPRESSIONS: Bipolar disorder type I, current episode depressed Cannabis use disorder Nicotine dependence PLAN: -Patient is admitted under voluntary status to [facility] for stabilization of psychiatric symptoms and safety. Patient has signed adult voluntary form and medication consent and is placed in patient's chart. -Medications : [place] 300 mg twice daily for mood stabilization/suicidal thoughts, discontinue Zoloft and replace with Cymbalta 30 mg twice daily for mood/anxiety, Seroquel 100 mg nightly for mood stabilization/insomnia -Ativan and Haldol PRN for agitation/aggression -Patient was informed of the risks, benefits and side effects of the medication and patient verbally consented to taking the medications. Patient signed med consent form and was placed in chart. -Internal Medicine consult to perform medical evaluation and physical. -NRT -nicotine patch - on board for discharge planning. Encourage patient to participate in groups to work on coping skills. 08/09/24 12:29
[2024-08-09] MEDS: LITHIUM CARBONATE 300 MG CAP PO SCH (12:44)
[2024-08-09] MEDS: DULoxetine HCL 30 MG CAPSULE.DR PO SCH (12:44)
[2024-08-09] MEDS ORDERED: QUEtiapine 50 MG TAB PO SCH (21:00)
[2024-08-09] MEDS ORDERED: SERTRALINE 50 MG TAB PO SCH (21:00)
[2024-08-09] MEDS: QUEtiapine 100 MG TAB PO SCH (21:04)
[2024-08-10 08:42] LABS: Chol/HDL Ratio 4.04 Ratio
--- NOTE | 2024-08-10 10:47 | P.PN ---
Progress Note - Text Progress Note Date: 08/10/24 Interval history: Patient was seen wandering the hallways and also taking part in activities and was directable and agreeable to speak with movie writer. He appears to be have an improvement in his affect today. He states that he is doing a bit better today with the medications. He asked more questions about the side effects and also benefits of the medications. Claims that he was able to sleep about 7 hours last night has been going to groups eating fairly.. At this time patient denies any suicidal or homicidal ideations intent or plan. Denies any Auditory or visual hallucinations. Patient denies any side effects from the medications and has been compliant with meds. Mental status exam: General Appearance: Patient appears to be tall, wearing street clothing, stated age is alert, directable, and cooperative. Behavior: No agitated behavior. Patient is calm and directable more cooperative today Speech: Patient's speech is fluent and nonpressured. Mood/Affect: Mood is improving mildly, affect is congruent and constricted. Suicidality/Homicidality: Patient denies having any suicidal or homicidal ideation intent or plan. Perceptions: Patient denies any auditory or visual hallucinations. Though content/process: There is no evidence of any delusional thought content and thought process is linear and goal-directed. Memory and concentration: AOX3, grossly intact for the purposes of this session Judgment and insight: improving mildly Assessment/Plan: Continue with current diagnosis. Patient continues to meet criteria for inpatient psychiatric admission for symptom stabilization and safety. Patient will be maintained on current psychotropic medication regimen. Monitor for medication compliance and for any psychotropic medication side effects. Will continue to monitor ongoing response to treatment. Encouraged participation in milieu.
--- NOTE | 2024-08-11 10:19 | P.PN ---
Progress Note - Text Progress Note Date: 08/11/24 Interval history: Patient was seen wandering the hallways and also was playing cards with other patients. He was agreeable to speak to software writer in the office today. States that he is doing a bit better today with his mood and anxiety. Claims that he is tolerating medications fairly well not reporting any side effects at this time. We spoke about getting a lithium level tomorrow which she is okay with. We also spoke about discharge planning he states that he feels more confident about [facility]arshal being discharged tomorrow back home, claims that he has good support from his family. Claims that he was able to sleep fairly last night has been eating well. Showering every day. At this time patient denies any suicidal or homicidal ideations intent or plan. Denies any Auditory or visual hallucinations. Patient denies any side effects from the medications and has been compliant with meds. Mental status exam: General Appearance: Patient appears to be tall, wearing street clothing, stated age is alert, directable, and cooperative. Behavior: No agitated behavior. Patient is calm and directable more cooperative today Speech: Patient's speech is fluent and nonpressured. Mood/Affect: Mood is improving mildly, affect is congruent and improving Suicidality/Homicidality: Patient denies having any suicidal or homicidal ideation intent or plan. Perceptions: Patient denies any auditory or visual hallucinations. Though content/process: There is no evidence of any delusional thought content and thought process is linear and goal-directed. Memory and concentration: AOX3, grossly intact for the purposes of this session Judgment and insight: improving mildly Assessment/Plan: Continue with current diagnosis. Patient continues to meet criteria for inpatient psychiatric admission for symptom stabilization and safety. Patient will be maintained on current psychotropic medication regimen. check lithium level tomorrow morning. Monitor for medication compliance and for any psychotropic medication side effects. Will continue to monitor ongoing response to treatment. Encouraged participation in milieu. likely discharge tomorrow back home.
[2024-08-12 07:12] VITALS: BP 116/72; PULSE 51; TEMP 97.6
--- NOTE | 2024-08-12 11:45 | P.DS ---
Providers Date of admission: 08/08/24 22:55 Expected date of discharge: 08/12/24 Attending physician: Luke Singleton MD Consults: 08/08/24 22:57 Consult Physician Routine Consulting Provider: Zach Salmon Consult Reason/Comments: History and Physical, New Admission Do you want consulting provider notified?: Yes Primary care physician: Alexei Maynard - Discharge Diagnosis(es) (1) Bipolar disorder current episode depressed Current Visit: Yes Status: Acute Priority: High (2) Cannabis use disorder Current Visit: Yes Status: Acute Priority: Medium (3) Nicotine dependence Current Visit: Yes Status: Acute Priority: Low Hospital Course: admission HPI: Admission note was completed by marketing copywriter "Patient is a 28-year-old male, he is single, he has no kids, 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 Patient presented to the hospital and was evaluated by EPS nurse and according to note "Patient presented to ER with father related to increased stress and suicidal ideation without plan or intent. Patient assessed in ER13 from [id number] without father present per patient request. Patient expresses he has been increasingly depressed with "severe thoughts of suicide". Patient denies current suicidal ideation but states he has daily thoughts of suicide. Patient states that his suicidal thoughts frequently and they take over his whole mood. Patient verbalizes previous suicide attempt to hang himself about 6 years ago. Patient states his mother commit suicide when he was 14 years old. Patient verbalizes that he stopped taking medication about 6 months ago for 4 months including Ravine 900mg daily, Zoloft 100MG HS, and Seroquel 50mg HS. Patient states he restarted his Zoloft and Seroquel approx 2 months ago, but did not restart his Ravine stating it caused extreme nausea and diarrhea. Patient verbalizes alcohol use socially last drink "a couple weeks ago". Verbalizes a "small amount" of marijana use daily, but denies any other substance use. Patient states he vapes daily. Patient denies homicidal ideation. Patient denies hallucinations or paranoia, and no delusional statements noted on assessment. Patient verbalizes decreased appetite and states that his appetite fluctuates based on his mood but is generally decreased over the past 2 weeks. Patient verbalizes good sleep since he continued his seroquel. Patient verbalizes without taking seroquel at night he has racing thoughts and increased suicidal thoughts at night. Patient denies difficulty maintaining hygiene and appears to have appropriate hygiene and is well groomed." Patient was seen today for psychiatric admission. He was fairly calm directable, pleasant during interaction. States that he has been dealing with depression and suicidal thoughts for the past few months. States that it has been increasing and claims that he talked to his father about it yesterday who brought him into the hospital. States that he had a major career change recently and started working as a refrigeration mechanic with his father. Claims that he has been having financial stressors because the pay is not the same as what it was. He states that he has a history of bipolar disorder type I, stopped taking his medications for a bit. Does not have an outpatient psychiatrist. High levels of anxiety at this time. Claims that he is not having any paranoia or delusions. Has a history of manic episodes however not currently any manic symptoms. States that his sleep has been fair appetite has been poor. Patient denies any current suicidal or homicidal ideations intent or plan. At this time patient denies any auditory or visual hallucinations. Patient denies any flight of ideas racing thoughts and increased in goal directed behavior. Patient admits to using marijuana daily, claims that he also vapes nicotine. Denies any other recreational drug use" Hospital course: Upon admission to the unit patient was directable and agreeable to commence treatment and signed adult voluntary form. Patient got along well with other patients on the unit and followed unit protocol. Patient was compliant with the medications and denied any side effects throughout hospital course. Patient was started on lithium 300 mg twice daily for mood stabilization/suicidal thoughts, Zoloft was replaced with Cymbalta 30 mg twice daily for mood/anxiety, Seroquel 100 mg nightly for mood stabilization/insomnia. Patient spoke of his stressors and engaged in therapy both group and individual. Patient was also seen by medical team for history and physical exam. Throughout the course of the hospitalization patient gradually improved with regards to mood, anxiety, suic idal thoughts, sleep and became more future oriented with improved insight and judgment. On the day of discharge patient denied any suicidal or homicidal ideations intent or plan denied any auditory or visual hallucinations. Patient endorsed wanting to live for their health and family. The patient denied any access to guns or weapons. Patient denied any paranoia and did not endorse any delusions. Patient does have a significant history of substance abuse and was counseled on abstaining from all substances including alcohol and marijuana. Patient elected to do outpatient substance use treatment program through their outpatient provider.. Patient was also counseled on the medications and need for regular compliance and was encouraged to follow-up with their outpatient appointment for mental health and also for primary care. Prior to discharge a family meeting will be arranged by social worker masters to answer any questions and ensure safety upon discharge incuding making sure that guns/weapons are either removed from the home or locked away. Mental status exam: General Appearance: Patient appears to be tall, stated age is alert, pleasant, and cooperative. Patient is in no acute distress and has improved hygiene and grooming Behavior: Patient is calmly seated without any agitated behavior. Speech: Patient's speech is fluent and nonpressured. Mood/Affect: Patient reports their mood is "good", affect is congruent and euthymic. Suicidality/Homicidality: Patient denies having any suicidal or homicidal ideation intent or plan. Perceptions: Patient denies any auditory or visual hallucinations. Though content/process: There is no evidence of any delusional thought content and thought process is linear and goal-directed. More future oriented Memory and concentration: AOX3, grossly intact for the purposes of this session. Can spell "WORLD" backwards correctly. Judgment and insight: improved with guarded prognosis Impression: Bipolar disorder, current episode depressed Cannabis use disorder Nicotine dependence Plan: -Continue with discharge today as patient has improved and stabilized psychiatrically and is not currently an imminent threat to themself and/or other s. -Continue medications: Ravine 300 mg twice daily for mood stabilization/suicidal thoughts, Cymbalta 30 mg twice daily for mood/anxiety, Seroquel 100 mg nightly for mood stabilization/insomnia -Awaiting lithium level drawn on morning of discharge -Patient was counseled on the need for medication compliance and appropriate follow-up at mental health and also primary care for medical issues. Patient verbalized understanding and agreed. -Social work to arrange for and conduct family meeting to ensure safety upon discharge and answer any questions/concerns. also to ensure safe home environmen t that guns/weapons are either removed from the home or locked away. Social work also to arrange for patients follow up appointments with [facility] for psychiatric care along with follow up with primary care provider. -Patient counseled on abstaining from recreational drugs and marijuana and alcohol. Was informed/educated on the adverse effects on their physical and mental health. Patient verbally agreed and understood. -Patient was instructed to return to the hospital or seek immediate medical care if their psychiatric or medical symptoms do worsen or reoccur. Allergies Allergy/AdvReac Type Severity Reaction Status Date / Time No Known Allergies Allergy Verified 08/08/24 19:44 Laboratory Results WBC 4.8 k/uL (3.8-10.6) 08/09/24 09:08 RBC 5.03 m/uL (4.30-5.90) 08/09/24 09:08 Hgb 15.5 gm/dL (13.0-17.5) 08/09/24 09:08 Hct 46.0 % (39.0-53.0) 08/09/24 09:08 MCV 91.5 fL (80.0-100.0) 08/09/24 09:08 MCH 30.7 pg (25.0-35.0) 08/09/24 09:08 MCHC 33.6 g/dL (31.0-37.0) 08/09/24 09:08 RDW 12.6 % (11.5-15.5) 08/09/24 09:08 Plt Count 224 k/uL (150-450) 08/09/24 09:08 MPV 8.5 08/09/24 09:08 Neutrophils % 53 % 08/09/24 09:08 Lymphocytes % 37 % 08/09/24 09:08 Monocytes % 5 % 08/09/24 09:08 Eosinophils % 3 % 08/09/24 09:08 Basophils % 1 % 08/09/24 09:08 Neutrophils # 2.5 k/uL (1.3-7.7) 08/09/24 09:08 Lymphocytes # 1.8 k/uL (1.0-4.8) 08/09/24 09:08 Monocytes # 0.2 k/uL (0-1.0) 08/09/24 09:08 Eosinophils # 0.1 k/uL (0-0.7) 08/09/24 09:08 Basophils # 0.0 k/uL (0-0.2) 08/09/24 09:08 Sodium 139 mmol/L (137-145) 08/09/24 09:08 Potassium 4.1 mmol/L (3.5-5.1) 08/09/24 09:08 Chloride 101 mmol/L (98-107) 08/09/24 09:08 Carbon Dioxide 26 mmol/L (22-30) 08/09/24 09:08 Anion Gap 12 mmol/L 08/09/24 09:08 BUN 17 mg/dL (9-20) 08/09/24 09:08 Creatinine 0.88 mg/dL (0.66-1.25) 08/09/24 09:08 Est GFR (CKD-EPI)AfAm >90 (>60 ml/min/1.73 sqM) 08/09/24 09:08 Est GFR (CKD-EPI)NonAf >90 (>60 ml/min/1.73 sqM) 08/09/24 09:08 Glucose 121 mg/dL (74-99) H 08/09/24 09:[address] Glu mg/dL 103 mg/dL 08/09/24 09:08 Hemoglobin A1c 5.2 % (<=6.0) 08/09/24 09:08 Calcium 9.4 mg/dL (8.4-10.2) 08/09/24 09:08 Total Bilirubin 1.5 mg/dL (0.2-1.3) H 08/09/24 09:08 Conjugated Bilirubin 0.0 mg/dL (0.0-0.3) 08/09/24 09:08 Unconjugated Bilirubin 1.3 mg/dL (0.0-1.1) H 08/09/24 09:08 Delta Bilirubin 0.2 mg/dL (0.0-0.2) 08/09/24 09:08 AST 26 U/L (17-59) 08/09/24 09:08 ALT 34 U/L (4-49) 08/09/24 09:08 Alkaline Phosphatase 35 U/L (38-126) L 08/09/24 09:08 Total Protein 7.7 g/dL (6.3-8.2) 08/09/24 09:08 Albumin 4.8 g/dL (3.5-5.0) 08/09/24 09:08 Triglycerides 102.00 mg/dL (0.00-149.00) 08/09/24 09:08 Cholesterol 144.00 mg/dL (0.00-200.00) 08/09/24 09:08 LDL Cholesterol, Calc 88.0 mg/dL (0.0-131.0) 08/09/24 09:08 VLDL Cholesterol, Calc 20.40 mg/dL (5.00-40.00) 08/09/24 09:08 HDL Cholesterol 35.60 mg/dL (40.00-60.00) L 08/09/24 09:08 Cholesterol/HDL Ratio 4.04 Ratio 08/09/24 09:08 TSH 1.890 mIU/L (0.465-4.680) 08/09/24 09:08 Urine Color Yellow 08/08/24 21:21 Urine Appearance Turbid (Clear) 08/08/24 21:21 Urine pH 5.5 (5.0-8.0) 08/08/24 21:21 Ur Specific [place] 1.030 (1.001-1.035) 08/08/24 21:21 Urine Protein Trace (Negative) H 08/08/24 21:21 Urine Glucose (UA) Negative (Negative) 08/08/24 21:21 Urine Ketones 1+ (Negative) H 08/08/24 21:21 Urine Blood Negative (Negative) 08/08/24 21:21 Urine Nitrite Negative (Negative) 08/08/24 21:21 Urine Bilirubin Negative (Negative) 08/08/24 21:21 Urine Urobilinogen <2.0 mg/dL (<2.0) 08/08/24 21:21 Ur Leukocyte Esterase Trace (Negative) H 08/08/24 21:21 Urine RBC 6 /hpf (0-5) H 08/08/24 21:21 Urine WBC 2 /hpf (0-5) 08/08/24 21:21 Ur Squamous Epith Cells 3 /hpf (0-4) 08/08/24 21:21 Calcium Oxalate Crystal Occasional /hpf (None) H 08/08/24 21:21 Urine Mucus Many /hpf (None) H 08/08/24 21:21 Urine Opiates Screen Not Detected (NotDetected) 08/08/24 21:21 Ur Oxycodone Screen Not Detected (NotDetected) 08/08/24 21:21 Urine Methadone Screen Not Detected (NotDetected) 08/08/24 21:21 Ur Barbiturates Screen Not Detected (NotDetected) 08/08/24 21:21 U Tricyclic Antidepress Not Detected (NotDetected) 08/08/24 21:21 Ur Phencyclidine Scrn Not Detected (NotDetected) 08/08/24 21:21 Ur Amphetamines Screen Not Detected (NotDetected) 08/08/24 21:21 U Methamphetamines Scrn Not Detected (NotDetected) 08/08/24 21:21 U Benzodiazepines Scrn Not Detected (NotDetected) 08/08/24 21:21 Urine Cocaine Screen Not Detected (NotDetected) 08/08/24 21:21 U Marijuana (THC) Screen Detected (NotDetected) H 08/08/24 21:21 Influenza Type A (PCR) Not Detected (Not Detectd) 08/08/24 21:21 Influenza Type B (PCR) Not Detected (Not Detectd) 08/08/24 21:21 RSV (PCR) Not Detected (Not Detectd) 08/08/24 21:21 SARS-CoV-2 (PCR) Not Detected (Not Detectd) 08/08/24 21:21 Vital Signs Temp 97.6 F 08/12/24 06:55 Pulse 51 L 08/12/24 06:55 Resp 16 08/12/24 06:55 BP 116/72 08/12/24 06:55 Pulse Ox 98 08/12/24 06:55 FiO2 Patient Condition at Discharge: Stable Plan - Discharge Summary Discharge Rx Participant: Yes New Discharge Prescriptions: New DULoxetine HCL [Cymbalta] 30 mg PO BID 30 Days #60 cap Nicotine 14Mg/24Hr Patch [Habitrol] 1 patch TRANSDERM DAILY 14 Days #14 patch QUEtiapine [SEROquel] 100 mg PO HS 30 Days #30 tab Ravine Carbonate 300 mg PO BID 30 Days #60 cap Continue Triamcinolone 0.1% Cream [Kenalog 0.1% Cream] 1 applicatio TOPICAL BID #30 gram Hydrocortisone/Pramoxine [Proctofoam-Hc 1%-1% Foam] 1 applic RECTAL BID #10 gm Discontinued Sertraline [Zoloft] 200 mg PO HS QUEtiapine [SEROquel] 100 mg PO HS Ravine Carbonate [Lithobid] 900 mg PO HS Docusate [Colace] 100 mg PO DAILY #10 capsule Discharge Medication List Hydrocortisone/Pramoxine [Proctofoam-Hc 1%-1% Foam] 1 applic RECTAL BID #10 gm 01/05/23 [Rx] Triamcinolone 0.1% Cream [Kenalog 0.1% Cream] 1 applicatio TOPICAL BID #30 gram 01/05/23 [Rx] DULoxetine HCL [Cymbalta] 30 mg PO BID 30 Days #60 cap 08/12/24 [Rx] Ravine Carbonate 300 mg PO BID 30 Days #60 cap 08/12/24 [Rx] Nicotine 14Mg/24Hr Patch [Habitrol] 1 patch TRANSDERM DAILY 14 Days #14 patch 08/12/24 [Rx] QUEtiapine [SEROquel] 100 mg PO HS 30 Days #30 tab 08/12/24 [Rx] Follow up Appointment(s)/Referral(s): [facility] [Outside] - 08/14/24 10:00 am (08/14/2024 10:00AM - 11:00AM NADYA ACKERMANDON 08/20/2024 2:00PM - 3:00PM DYLAN BLANC ) Alexei Maynard MD [Primary Care Provider] - 1-2 days Patient Instructions/Handouts: How to Stop Smoking (DC), Bipolar Disorder (DC) Activity/Diet/Wound Care/Special Instructions: [facility] Discharge Info Avoid the use of street drugs and alcohol. Take all medications as prescribed. When you are in need of refills on your medications, please contact your outpatient medical provider and/or outpatient psychiatrist. Please go to your scheduled outpatient appointments for aftercare treatment. If symptoms return or become worse, call the crisis line at or and/or visit the nearest emergency room for assistance. National Suicide and Crisis Lifeline - call or text 988 Discharge Disposition: HOME SELF-CARE
== END 2024-08-12 14:02 | disposition home or self-care (01) | DRG 885 ==
LOC: EC 19:28 → 3MHU 22:55
PROVIDERS: ADMIT Psychiatry & Neurology Psychiatry; ATTEND Psychiatry & Neurology Psychiatry
DX: F31.30 Bipolar disorder, current episode depressed, mild or moderate severity, unspecified (principal); R45.851 Suicidal ideations; F12.10 Cannabis abuse, uncomplicated; F17.290 Nicotine dependence, other tobacco product, uncomplicated; F41.9 Anxiety disorder, unspecified; G47.00 Insomnia, unspecified; Z79.899 Other long term (current) drug therapy; T43.596A Underdosing of other antipsychotics and neuroleptics, initial encounter; Z91.128 Patient's intentional underdosing of medication regimen for other reason; Z11.52 Encounter for screening for COVID-19; Z28.21 Immunization not carried out because of patient refusal; Z81.8 Family history of other mental and behavioral disorders
CPT/HCPCS: 80053; 80061; 80178; 80306; 81001; 82075; 82248; 83036; 84443; 85025; 87636; 99285